=== PATIENT | female | born 1970 | race Caucasian/White ===

== ENCOUNTER 2022-02-28 14:07 | Emergency (ER) | payer OTHER ==
[~2022-02-28] VITALS: Ht 157.5 cm; Wt 63.6 kg
[2022-02-28] MEDS ORDERED: BACL10TA PO (16:29)
[2022-02-28] MEDS ORDERED: BACI28OI29 TP (16:30)
[2022-02-28] MEDS ORDERED: IBUP-2070 PO (16:30)
[2022-02-28 16:46] VITALS: BP 120/88
== END 2022-02-28 17:06 | disposition home or self-care (01) ==
LOC: EMS 14:14
DX: S51.812A Laceration without foreign body of left forearm, initial encounter (principal); Z79.899 Other long term (current) drug therapy; Y04.0XXA Assault by unarmed brawl or fight, initial encounter; Y93.89 Activity, other specified; Y92.89 Other specified places as the place of occurrence of the external cause; Y99.8 Other external cause status
CPT/HCPCS: 99281; Z7502